=== PATIENT | male | born 2000 | race Caucasian/White ===

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

== ENCOUNTER 2019-10-11 01:54 | Emergency (ER) | payer BC ==
[~2019-10-11] VITALS: Ht 180.3 cm; Wt 75.0 kg
[~2019-10-11 01:54] MED LIST: DIASTAT ACUDIAL20 MG RC
[2019-10-11 01:58] VITALS: BP 111/68; TEMP 97.6
[2019-10-11 02:31] VITALS: PULSE 78
== END 2019-10-11 02:31 | disposition home or self-care (01) ==
LOC: COL.ER 01:54
DX: T16.2XXA Foreign body in left ear, initial encounter (principal)